=== PATIENT | male | born 1970 | race African-American/Black ===

== ENCOUNTER 2019-03-26 12:33 | Emergency (ER) | payer SELFPAY ==
[2019-03-26 12:49] VITALS: BP 128/69
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
[2019-03-26] MEDS ORDERED: BOOSTRIX IM ONE (14:06)
[2019-03-26] MEDS ORDERED: XYLOCAINE 1% 20 mL INFILTRATI ONE (14:06)
[2019-03-26] MEDS ORDERED: XYLOCAINE 2% INFILTRATI ONE ×2 (14:08→14:12)
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
== END 2019-03-26 14:57 | disposition home or self-care (01) ==
LOC: ED 12:33
DX: S01.511A Laceration without foreign body of lip, initial encounter (principal); I10 Essential (primary) hypertension; E11.9 Type 2 diabetes mellitus without complications; Y04.2XXA Assault by strike against or bumped into by another person, initial encounter; Y93.89 Activity, other specified; Y92.89 Other specified places as the place of occurrence of the external cause; Y99.8 Other external cause status
CPT/HCPCS: 70150; 90471; 99283

== ENCOUNTER 2019-04-12 01:31 | Emergency (ER) | payer SELFPAY ==
[2019-04-12 02:03] VITALS: BP 144/96
--- NOTE | 2019-04-12 03:54 | Emergency Department Report ---
Suture/Staple Removal - HPI Chief Complaint: Laceration/Recheck/Suture Stated Complaint: REMOVE STITCHES Time Seen by Provider: 04/12/19 03:28 When Sutures or [place] Placed: 5-7 Days Ago Wound Location: stitches to the left lower lip ED Review of Systems ROS: Stated complaint: REMOVE STITCHES Other details as noted in HPI Comment: All other systems reviewed and negative ED Past Medical Hx - Past Medical History Previous Medical History?: Yes Hx Hypertension: Yes Hx Diabetes: Yes - Surgical History Past Surgical History?: No - Social History Smoking Status: Never Smoker Substance Use Type: None - Medications Home Medications: Home Medications Medication Instructions Recorded Confirmed Last Taken Type Acetaminophen/Codeine [Tylenol 1 tab PO Q6H PRN #12 tab 03/26/19 Unknown Rx /Codeine # 3 tab] Amoxicillin/K Clav Tab [Augmentin 1 tab PO Q12HR #20 tab 03/26/19 Unknown Rx 875 mg] Suture Removal Exam - Exam General: Vital signs noted. No distress. Alert and acting appropriately. Wound: No Pathologic Erythema, No Tenderness, No Drainage, No Pus, No Wound Dehiscence Other Systems: All other systems reviewed and are unremarkable. Sutures to ED Course Vital Signs 04/12/19 01:35 Temperature 98.6 F Pulse Rate 103 H Respiratory 16 Rate Blood Pressure 144/96 O2 Sat by Pulse 97 Oximetry Critical care attestation.: If time is entered above; I have spent that time in minutes in the direct care of this critically ill patient, excluding procedure time. ED Disposition Clinical Impression: Visit for suture removal Disposition: DC-01 TO HOME OR SELFCARE Is pt being admited?: No Does the pt Need Aspirin: No Condition: Stable Instructions: Pharyngitis (ED), Suture Removal (ED) Referrals: PRIMARY CARE, [Primary Care Provider] - 3-5 Days
== END 2019-04-12 04:27 | disposition home or self-care (01) ==
LOC: ED 01:31
DX: S01.511D Laceration without foreign body of lip, subsequent encounter (principal); I10 Essential (primary) hypertension; E11.9 Type 2 diabetes mellitus without complications; X58.XXXD Exposure to other specified factors, subsequent encounter